=== PATIENT | male | born 1980 ===

== ENCOUNTER 2022-04-09 19:14 | Emergency (ER) | payer BC, SELFPAY ==
[2022-04-09 19:21] VITALS: BP 145/71; PULSE 65; RESP 18; TEMP 36.4; O2SAT 99; BMI 37.3
--- NOTE | 2022-04-09 19:38 | ED_ITS ---
HPI - General Adult General Chief complaint: Extremity Pain/Injury, Upper Stated complaint: Nerve Pain/Arm Time Seen by Provider: 04/09/22 19:38 History of Present Illness HPI narrative: This 41-year-old male was diagnosed with spinal stenosis in the cervical region about a month ago. He has neck pain radiating into his arms and comes in today stating that the pain is worsened. He is unable to sleep at night due to pain. He is taking tramadol, Tylenol, and Advil. He states that he was prescribed a steroid but discontinued it because it was causing upset stomach. He does not report any recent injury event or strenuous activity that triggered these symptoms. He has had an MRI recently to establish this diagnosis. Related Data Home Medications Medication Instructions Recorded Confirmed sertraline 50 mg tablet (Zoloft) 25 mg PO DAILY 04/09/22 04/09/22 Previous Rx's Medication Instructions Recorded gabapentin 100 mg capsule 100 mg PO TID #30 caps 04/09/22 Allergies Allergy/AdvReac Type Severity Reaction Status Date / Time No Known Drug Allergies Allergy Verified 04/09/22 19:24 Review of Systems Status of ROS: Reports: 10 or more systems reviewed and unremarkable except as noted in History and below Narrative: Constitutional: No fevers, no weight gain or loss. Eyes: No discharge. No vision changes. HENT: No congestion, no sore throat, no ear pain. Cardiovascular: No chest pain, no palpitations. Respiratory: No shortness of breath, no wheezes, no cough. Gastrointestinal: No abdominal pain, no vomiting, no diarrhea. Genitourinary: No dysuria, no hematuria. Musculoskeletal: Neck pain due to spinal stenosis. Skin: No rashes, no pruritis. Neurological: No dizziness, weakness, sensory change, speech change. Endo/Heme/Allergies: No bruising or bleeding. No polydipsia. Pysch: no suicidality, no anxiety, no insomnia. All other systems reviewed and are negative. Exam Narrative: Exam Narrative: Constitutional: Well-developed, well-nourished, no acute distress. HEENT: Normocephalic, atraumatic. Neck: Diffuse tenderness in the neck extending into the arms. There is no midline tenderness when palpating along the spine. Heart: Intact distal pulses. Lungs: No chest discomfort. No wheezes, rhonchi, or rales. Abdomen: Nontender. Back: Normal range of motion. Extremities: Normal range of motion. No injury. Skin: Intact. No rash. Warm. No erythema or pallor. Neurologic: No altered sensation. No weakness. Alert and oriented. Psychiatric: No suicidality. No anxiety or depression. No insomnia. Nursing notes and vitals signs are reviewed. Const: Vital Signs, click to edit/add: Vital Signs - 24 hr 04/09/22 19:21 Temperature 97.6 F Pulse Rate [Right Pulse Oximeter] 65 Respiratory Rate 18 Blood Pressure [Ri ght Upper Arm] 145/71 H Pulse Oximetry 99 Oxygen Delivery Me thod Room Air Course Vital Signs Vital signs: Initial Vital Signs Temperature 97.6 F 04/09/22 19:21 Temperature Source Temporal Artery Scan 04/09/22 19:21 Pulse Rate 65 04/09/22 19:21 Respiratory Rate 18 04/09/22 19:21 Blood Pressure 145/71 H 04/09/22 19:21 Blood Pressure Mean 95 04/09/22 19:21 Blood Pressure Position Sitting 04/09/22 19:21 Pulse Oximetry 99 04/09/22 19:21 Oxygen Delivery Method 04/09/22 19:21 Vital Signs Temperature 97.6 F 04/09/22 19:21 Pulse Rate 65 04/09/22 19:21 Respiratory Rate 18 04/09/22 19:21 Blood Pressure 145/71 H 04/09/22 19:21 Pulse Oximetry 99 04/09/22 19:21 Oxygen Delivery Method 04/09/22 19:21 Temperature 97.6 F 04/09/22 19:21 Pulse Rate 65 04/09/22 19:21 Respiratory Rate 18 04/09/22 19:21 Blood Pressure 145/71 H 04/09/22 19:21 Pulse Oximetry 99 04/09/22 19:21 Oxygen Delivery Method 04/09/22 19:21 Medical Decision Making MDM Narrative Medical decision making narrative: This patient comes in with cervical spinal stenosis and worsening pain related to this. He has had a recent workup and does have a follow-up appointment in 3 days. He will be starting physical therapy and perhaps will need surgery. He comes in because his pain is not controlled enough to be able to sleep at night. He did receive an intramuscular injection of morphine 10 mg. I did provide limited prescriptions for Toradol, [place], and a trial of gabapentin. He has a follow-up appointment in 3 days that these plans can be reviewed and continued according to his primary physician. Discharge Plan Discharge Clinical Impression: Spinal stenosis in cervical region Patient Disposition: Home, Self-Care Condition: Stable Instructions: Cervical Spinal Stenosis (ED) Additional Instructions: Take medication as prescribed. Follow up with MD as scheduled or return if worsening. Prescriptions: New gabapentin 100 mg capsule 100 mg PO TID Qty: 30 2RF No Action sertraline [Zoloft] 50 mg tablet 25 mg PO DAILY Stand Alone Forms: [employer] Info Instructions
[2022-04-09] MEDS: MORPHINE 10 MG/ML inj IM (19:46)
[2022-04-09 20:05] VITALS: PULSE 64; RESP 16; O2SAT 97
== END 2022-04-09 20:18 | disposition home or self-care (01) ==
LOC: ED 20:02
PROVIDERS: Emergency Provider Emergency Medicine Emergency Medical Services
DX: M48.02 Spinal stenosis, cervical region (principal)
CPT/HCPCS: 96372; 99283; 99284; J2270

== ENCOUNTER 2022-04-22 20:27 | Emergency (ER) | payer BC, SELFPAY ==
[2022-04-22 20:39] VITALS: BP 144/90; PULSE 75; RESP 18; TEMP 36.2; O2SAT 96
--- NOTE | 2022-04-26 10:05 | ED_ITS ---
HPI - Back Pain/Injury General Chief Complaint: Back Injury/Pain Stated Complaint: Nerve Pain In Back Time Seen by Provider: 04/22/22 20:50 History of Present Illness HPI Narrative: 41 year old man presenting with SO to the ER with c/o significant deep pain in neck radiating to left shoulder and left arm. known cervical spine stenosis; relatively recent diagnosis. seen in this ER about 2 weeks ago and received IM morphine. first steroid injection 4 days ago through [place] followed by PT. no fever, no swelling, no rash noted. has MD followup next week. is out of norco ([employer] review consistent) which helps some. weakness in left arm and hand. numbness in left arm. takes low-dose gabapentin as well. just can't get comfortable and needs to be able to sleep. Related Data Home Medications Medication Instructions Recorded Confirmed sertraline 50 mg tablet (Zoloft) 25 mg PO DAILY 04/09/22 04/09/22 Previous Rx's Medication Instructions Recorded gabapentin 100 mg capsule 100 mg PO TID #30 caps 04/09/22 gabapentin 300 mg capsule 300 mg PO TID #30 caps 04/22/22 Allergies Allergy/AdvReac Type Severity Reaction Status Date / Time No Known Drug Allergies Allergy Verified 04/09/22 19:24 Review of Systems Status of ROS: Reports: 6 or more systems reviewed and unremarkable except as noted in History and below [facility] Medical History Spinal stenosis in cervical region Surgical History (Updated 04/09/22 @ 20:02 by Mina Lawrence RN) No significant past surgical history Social History Smoking Status: Never smoker Second hand tobacco smoke exposure: No How often do you have a drink containing alcohol: never How often do you have six or more drinks on one occasion: Never AUDIT-C Alcohol total score: 0 Non-prescribed substance use: marijuana (any form) Exam Narrative: Exam Narrative: well built. clearly uncomfortable but not demonstrating greatly. cn 2-12 intact skin warm and dry. no rash. moving all extremities without difficulty and well perfused but neck rotation exacerbates pain. no midline neck tenderness. sore to palpation in left trap and surrounding musculature. subjective numbness in left arm. subtle weakness on recruiter coordinator in left vs right. lungs appear to be clear cv regular rate. Const: Documenting provider has reviewed patient's vital signs: yes Course Vital Signs Vital signs: Initial Vital Signs Temperature 97.1 F L 04/22/22 20:39 Temperature Source Temporal Artery Scan 04/22/22 20:39 Pulse Rate 75 04/22/22 20:39 Respiratory Rate 18 04/22/22 20:39 Blood Pressure 144/90 H 04/22/22 20:39 Blood Pressure Mean 108 04/22/22 20:39 Blood Pressure Position Semi-Fowlers 04/22/22 20:39 Pulse Oximetry 96 04/22/22 20:39 Oxygen Delivery Method 04/22/22 20:39 Vital Signs Temperature 97.1 F L 04/22/22 20:39 Pulse Rate 75 04/22/22 20:39 Respiratory Rate 18 04/22/22 20:39 Blood Pressure 144/90 H 04/22/22 20:39 Pulse Oximetry 96 04/22/22 20:39 Oxygen Delivery Method 04/22/22 20:39 Temperature 97.1 F L 04/22/22 20:39 Pulse Rate 75 04/22/22 20:39 Respiratory Rate 18 04/22/22 20:39 Blood Pressure 144/90 H 04/22/22 20:39 Pulse Oximetry 96 04/22/22 20:39 Oxygen Delivery Method 04/22/22 20:39 MDM - Back Pain/Injury MDM Narrative Medical decision making narrative: mri correlates with clinical picture percocet, hydroxyzine and zofran from [facility]. he would prefer to avoid prednisone to to hurting stomach prior. increase gabapentin Medical Records Attestation: I reviewed the patient's medical records. Discharge Plan Discharge Clinical Impression: Spinal stenosis in cervical region, Radiculitis Patient Disposition: Home w/ Parent or Adult Condition: Stable Additional Instructions: Stay hydrated. If taking opiates might want to add senna product daily and maybe MiraLax equivalent to keep stools moving. Please follow-up with primary care and other involved providers to keep this plan rolling along including how to manage pain. I think at a minimum you can increase your gabapentin to 300 mg 3 times a day. From [facility], can combine hydroxyzine with your opiates as can make them more effective. You might also take up to 500 mg of naproxen 2 times daily. This can be a substitute for ibuprofen. Prescriptions: New gabapentin 300 mg capsule 300 mg PO TID Qty: 30 0RF No Action sertraline [Zoloft] 50 mg tablet 25 mg PO DAILY gabapentin 100 mg capsule 100 mg PO TID Qty: 30 2RF Follow Up/Referrals: Dorinda Horner CNP [Primary Care Provider] - Stand Alone Forms: [employer] Info Instructions
== END 2022-04-22 21:25 | disposition home or self-care (01) ==
LOC: ED 21:18
PROVIDERS: Emergency Provider Family Medicine; PCP Family Medicine
DX: M48.02 Spinal stenosis, cervical region (principal); M54.12 Radiculopathy, cervical region
CPT/HCPCS: 99282; 99283

== ENCOUNTER 2022-05-02 17:00 | Outpatient (RCR) | payer BC, SELFPAY | END 2022-08-01 11:23 | disposition home or self-care (01) | PROVIDERS: PCP Family Medicine; Visit Provider Family Medicine | DX: M54.2 Cervicalgia (principal); Z51.89 Encounter for other specified aftercare | CPT/HCPCS: 97012; 97110; 97112; 97140; 97161 ==

== ENCOUNTER 2022-05-21 13:03 | Emergency (ER) | payer BC, SELFPAY ==
[2022-05-21 13:13] VITALS: BP 123/85; PULSE 71; RESP 18; TEMP 36.6; O2SAT 98; BMI 38.7
--- NOTE | 2022-05-21 13:36 | ED.GENADULT ---
HPI - General Adult General Chief complaint: Abdominal Pain Stated complaint: Pain Time Seen by Provider: 05/21/22 13:12 Source: patient and family Mode of arrival: ambulatory Limitations: no limitations History of Present Illness HPI narrative: 41-year-old male with a recent diagnosis of cervical spine stenosis presenting today with acute pain. Patient states that he has been treating his pain with Aleve and gabapentin, 900 mg p.o. t.i.d., however today his gave him a massage and he is not sure if that inflamed his pain but he he presents today with an acute exacerbation of left shoulder pain that radiates all the way to his fingertips. He denies any fevers or chills. The pain does make him feel nauseated but he has not vomited. No recent illness. His last prescription for oxycodone was on 04/22/2022 according to the [place] [facility], he last received IM morphine in the ER on 04/09/2022. He is status post 2 steroid injections in the area which have not helped. He states that he has to have a 3rd 1 and then they are going to discuss surgery. Related Data Home Medications Medication Instructions Recorded Confirmed sertraline 50 mg tablet (Zoloft) 25 mg PO DAILY 04/09/22 05/21/22 Previous Rx's Medication Instructions Recorded gabapentin 100 mg capsule 100 mg PO TID #30 caps 04/09/22 gabapentin 300 mg capsule 300 mg PO TID #30 caps 04/22/22 Allergies Allergy/AdvReac Type Severity Reaction Status Date / Time No Known Drug Allergies Allergy Verified 05/21/22 13:20 Review of Systems Status of ROS: Reports: 10 or more systems reviewed and unremarkable except as noted in History and below [facility] Medical History Spinal stenosis in cervical region Surgical History No significant past surgical history Social History Smoking Status: Never smoker Second hand tobacco smoke exposure: No How often do you have a drink containing alcohol: never How often do you have six or more drinks on one occasion: Never AUDIT-C Alcohol total score: 0 Non-prescribed substance use: marijuana (any form) Exam Narrative: Exam Narrative: Well-nourished well-developed patient, he is very tearful. Alert and oriented. Answers questions appropriately. Thoughts are goal oriented and rational. No tangential or magical thinking noted. Patient speaks in full sentences without needing to catch his breath. HEENT: Normocephalic atraumatic. Pupils are equally round reactive to light. Extraocular muscles are intact. Conjunctivae are moist without any icterus noted. Moist mucous membranes. Cardiovascular: Heart is regular rate and rhythm. Lungs: Clear to auscultation bilaterally. Neck is normal appearance. No vascular compromise noted of the left upper extremity. Const: Vital Signs, click to edit/add: Vital Signs - 24 hr 05/21/22 13:13 05/21/22 13:55 Temperature 97.9 F Pulse Rate [Right Pulse Oximeter] 71 63 Respiratory Rate 18 Blood Pressure [Ri ght Upper Arm] 123/85 Pulse Oximetry 98 97 Oxygen Delivery Me thod Room Air Room Air Course Course Hospital Course: Morphine 10 mg IM given in the ED today. Vital Signs Vital signs: Initial Vital Signs Temperature 97.9 F 05/21/22 13:13 Temperature Source Temporal Artery Scan 05/21/22 13:13 Pulse Rate 71 05/21/22 13:13 Respiratory Rate 18 05/21/22 13:13 Blood Pressure 123/85 05/21/22 13:13 Blood Pressure Mean 97 05/21/22 13:13 Blood Pressure Position Sitting 05/21/22 13:13 Pulse Oximetry 98 05/21/22 13:13 Oxygen Delivery Method 05/21/22 13:13 Vital Signs Temperature 97.9 F 05/21/22 13:13 Pulse Rate 71 05/21/22 13:13 Respiratory Rate 18 05/21/22 13:13 Blood Pressure 123/85 05/21/22 13:13 Pulse Oximetry 98 05/21/22 13:13 Oxygen Delivery Method 05/21/22 13:13 Temperature 97.9 F 05/21/22 13:13 Pulse Rate 63 05/21/22 13:55 Respiratory Rate 18 05/21/22 13:13 Blood Pressure 123/85 05/21/22 13:13 Pulse Oximetry 97 05/21/22 13:55 Oxygen Delivery Method 05/21/22 13:55 Medical Decision Making [facility] Narrative Medical decision making narrative: [age] year male with cervical spinal stenosis presenting with acute pain exacerbation. Treated with IM morphine. Will be sent home with [id number] tablets. He does have an appointment with primary care coming up this week. Medical Records Medical records reviewed: Yes I reviewed the patient's medical records Discharge Plan Discharge Clinical Impression: Cervical spinal stenosis, Acute pain Patient Disposition: Home, Self-Care Condition: Improved Additional Instructions: Follow-up with primary care this coming week. Prescriptions: No Action sertraline [Zoloft] 50 mg tablet 25 mg PO DAILY gabapentin 100 mg capsule 100 mg PO TID Qty: 30 2RF gabapentin 300 mg capsule 300 mg PO TID Qty: 30 0RF Follow Up/Referrals: Dorinda Horner, [employer]AR[employer] TRAINEE [Primary Care Provider] - Stand Alone Forms: [employer] Info Instructions
[2022-05-21] MEDS: MORPHINE 10 MG/ML inj IM (13:47)
[2022-05-21 13:55] VITALS: PULSE 63; O2SAT 97
== END 2022-05-21 14:06 | disposition home or self-care (01) ==
LOC: ED 13:54
PROVIDERS: Emergency Provider Family Medicine; PCP Family Medicine
DX: M48.02 Spinal stenosis, cervical region (principal)
CPT/HCPCS: 96372; 99283; 99284; J2270

== ENCOUNTER 2024-11-09 19:39 | Emergency (ER) | payer BC, SELFPAY ==
--- OUTSIDE RECORDS SUMMARY | 2024-11-09 19:42 | XMS_ITS | Clinical Summary ---
Author Organization [facility] Address [address] [place] [address] Care Team Providers Care Histologist Name Role Phone Chantal Gibbons P.A.-C. Primary Care Provider [phone] Source Comments Patient records contain information from all sites at [facility]. For routine questions regarding patient records, call [phone] during business hours, M-F 8:00 AM - 5:00 PM Central Time. Record requests for emergency care only can be directed to [phone] at any time.[facility] Allergies No known active allergies Medications gabapentin (NEURONTIN) 300 mg capsule TAKE 1 CAPSULE(300 MG) BY MOUTH THREE TIMES DAILY 270 capsule 3 4 Active Additional Information Patient taking differently:300 mg oral 3 times daily,As needed, Reported on 04/28/2024 omeprazole (PriLOSEC) [address] capsule Take 1 capsule (20 mg total) by mouth daily before morning meal. 90 capsule 3 4 Active semaglutide (Wegovy) 1 mg/0.5 mL pen injector injection Inject 1 mg under the skin every 7 (seven) days. 2 mL 11 4 04/28/20 25 Active sertraline (Zoloft) 100 mg tabletIndicatio ns:Depression Major One Episode Full Remission (HCC) Take 1 tablet (100 mg total) by mouth daily. 90 tablet 3 4 Active Active Problems Problem Noted Date Diagnosed Date Ruptured Cervical Disc 06/05/2022 Overview (06/05/2022): Added automatically from request for surgery [id number] Radiculopathy Cervical 06/02/2022 Depression Major One Episode Full Remission 02/03 Overview (04/28/2024): PHQ-9=4; MASON-7=4 Maintained on Zoloft 100 mg daily. Apnea Sleep Obstructive 03/02/2021 Overview (04/28/2024): Non compliant CPAP Symptoms improved with weight loss Body Mass Index 30.0 To 30.9 Adult 03/02/2021 Immunizations Immunization Administration Dates Next Due HepB Adult (HEPLISAV-B) 06/02/2024,04/28/2024 Influenza, Injectable, Mdck, Preservative Free, Quadrivalent 05/20/2024,06/04/2023,06/13/2022 SARS-COV-2 (COVID-19) - MODERNA(Discontinued) 11/25/2020,10/27/2020 SARS-COV-2 (COVID-19),NON-US,Unspecified(HISTORICAL) 05/20/2024,06/04/2023 Tdap 03/19/2023,08/08/2012 influenza vaccine quad (FLUZ ONE/FLUARIX) (6 months and older)(PF) 07/12/2020,11/20/2019 Family History Medical History Relation Name Comments Migraines Brother Diabetes mellitus type II Father Gavin Arzate Hyperlipidemia Father Gavin Arzate Hypertension Father Gavin Arzate Obesity Father Gavin Arzate Sleep apnea Father Gavin Arzate No Known Problems Maternal Grandmother Anxiety disorder Mother Ana Arzate Depression Mother Ana Arzate Skin cancer Mother Ana Marquisard Squamous cell Dementia Paternal Grandmother No Known Problems Sister 1 No Known Problems Sister 2 Relation Name Status Comments Brother Alive Father Gavin Arzate Alive Maternal Grandfather Maternal Grandmother Alive Mother Ana Arzate Alive Paternal Grandfather Paternal Grandmother Sister 1 Alive Sister 2 Alive Social History Tobacco Use Types Packs/Day Years Used Date Smoking Tobacco: Former Cigarettes 0 05/06/1999 - 04/05/2011 Smokeless Tobacco: Never Tobacco Cessation:Counseling Given: Not Answered Alcohol Use Standard Drinks/Week Comments Not Currently 0 (1 standard drink = 0.6 oz pur e alcohol) 1x monthly Humiliation, Afraid, Rape, and Kick questionnair e Answer Date Recorded Within the last year, have y ou been afraid of your partner or ex-partner? No 05/13/2022 Within the last year, have y ou been humiliated or emotionally abused in other ways by your partner or ex-partner? No Within the last year, have y ou been kicked, hit, slapped, or otherwise physically hurt by your partner or ex-partner? No 05/13/2022 Within the last year, have y ou been raped or forced to have any kind of sexual activity by your partner or ex-partner? No 05/13/2022 Social Connection and Isolat ion Panel [NHANES] Answer Date Recorded In a typical week, how many times do you talk on the phone with family, friends, or neighbors? Twice a week 05/13/2022 How often do you get togethe r with friends or relatives? Once a week 05/13/2022 How often do you attend chur ch or pentecostalism services? Never 05/13/2022 Do you belong to any clubs o r organizations such as taoist groups, unions, fraternal or athletic groups, or school groups? Yes 05/13/2022 How often do you attend meet ings of the clubs or organizations you belong to? More than 4 times per year 05/13/2022 Are you , , di vorced, , never , or living with a partner? Living with partner 05/13/2022 AUDIT-C Answer Date Recorded Q1: How often do you have a drink containing alc ohol? Monthly or less 05/13/2022 Average Number of Drinks Not on file 022 Frequency of Binge Drinking Not on file 05/04 Overall Financial Resource Strain (CARDIA) Answe r Date Recorded How hard is it for you to pa y for the very basics like food, housing, medical care, and heating? Not hard at all 06/26/2023 PHQ-2 Answer Date Recorded PHQ-2 Score 1 07/02/2024 [facility] - Occupational Stress Questionnaire Answer Date Recorded Do you feel stress - tense, restless, nervous, or anxious, or unable to sleep at night because your mind is troubled all the time - these days? Only a little 05/13/2022 Exercise Vital Sign Answer Date Recorde d On average, how many days pe r week do you engage in moderate to strenuous exercise (like a brisk walk)? 5 days 06/26/2023 On average, how many minutes do you engage in exercise at this level? 30 min 06/26/2023 Hunger Vital Sign Answer Date Recorded Within the past 12 months, y ou worried that your food would run out before you got the money to buy more. Never true 06/26/20 23 Within the past 12 months, t he food you bought just didn't last and you didn't have money to get more. Never true 06/26/2023 PRAPARE - Transportation Answer Date Re corded In the past 12 months, has l ack of transportation kept you from medical appointments or from getting medications? No 06/04 In the past 12 months, has l ack of transportation kept you from meetings, work, or from getting things needed for daily living? No 06/26/2023 Depression Answer Date Recor ded PHQ-9 Total Score (max 27) 4 07/02 Nutrition Answer Date Recorded On average, how many serving s of fruits and vegetables do you eat per day (serving size is equal to 1 cup or approximately the size of a tennis ball)? 3-5 06/26/2023 Dental Answer Date Recorded Dental: Regular Dentist No 10/25/19 21 Employment Answer Date Recorded Employment status Employed and actively working without restrictions 06/26/2023 Housing Stability Answer Date Recorded What is your living situation today? I have a [facility] place to live 06/26/2023 Education Answer Date Recorded What is the highest level of school you have completed or the highest degree you have received? 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 Last Filed Vital Signs Vital Sign Reading Time Taken Comments Blood Pressure 125/83 04/28/2024 3:36 PM CDT Pulse 80 04/28/2024 3:36 PM CDT Temperature 36 C (96.8 F) 04/28/2024 3:36 PM CDT Respiratory Rate 16 04/28/2024 3:36 PM CDT Oxygen Saturation 94% 06/28/2022 7:50 AM CDT Inhaled Oxygen Concentration - - Weight 109 kg (239 lb 12 oz) 04/28/2024 3:36 PM CDT Height 177.8 cm (5' 10) 04/28/2024 3:36 PM CDT Body Mass Index 34.4 04/28/2024 3:36 PM CDT Plan of Treatment Health Maintenance Due Date Last Done Comments HIV Screening 1980 Hepatitis C Screening 1980 COVID-19 Vaccine ( season) 2024 05/20/2024, 06/04/2023, 06/13/2022, Additional history exists Depression Monitoring (PHQ-9 for quality tracking) 09/03/2024 Depression Monitoring (PHQ-9) 10/31/2024 07/02/2024 Lipid (Cholesterol) Screening 06/02/2029 06/02/2024, 05/15/2022, 03/02/2021 DTaP,Tdap,and Td Vaccines (3 - Td or Tdap) 03/19/2033 03/19/2023, 08/08/2012 Influenza Vaccine Completed 05/20/2024, , 06/13/2022, Additional history exists Hepatitis B Vaccines Completed 06/02/2024, 04/28/20 24 HPV Vaccines Aged Out No longer eligi ble based on patient's age to complete this topic IPV Vaccines Aged Out No longer eligi ble based on patient's age to complete this topic Pneumococcal vaccine (0-49 years) Aged Out No longer eligible based on patient's age to complete this topic Medical Devices Implanted Type Area Imaging Administrator Device Identifier Shelf Expiration Date Model / Serial / Lot Hardware E.G. Pins/Screws/ Rods Hardware e.g. pins/screws/r ods Left: Ankle Prestige Cervical Disc System Implanted:Qt y: 1 on 06/27/2022 by Von Barr M.D. at [facility] Prosthesis Anterior: Spine Cervical Medtronic 08/13/2027 [id number] / / [id number] Procedures Procedure Name Priority Date/Time Associated Diagnosis Comments LIPID PANEL, S Routine 06/02/2024 3:36 PM CDT Encounter For Screening For Cardiovascular Disorders from Last 3 Months or Most Recently Relevant to Health Maintenance Results * (ABNORMAL) Lipid Panel (06/02/2024 3:36 PM CDT) Triglycerides 93 mg/dL 06/02/2024 6:08 PM CDT OWAT Comment: ----REFERENCE VALUE---- Normal: <150 mg/dL Borderline High: 150-199 mg/dL High: 200-499 mg/dL Very High: > or =500 mg/dL Cholesterol, Total 230(H) mg/dL 2023 6:08 PM CDT OWAT Comment: ----REFERENCE VALUE---- Desirable: < 200 mg/dL Borderline High: 200 - 239 mg/dL High: > or = 240 mg/dL Cholesterol, LDL, Calculated 159(H) mg/dL 06/02/2024 6:08 PM CDT OWAT Comment: ----REFERENCE VALUE---- Desirable: <100 mg/dL Above Desirable: 100-129 mg/dL Borderline High: 130-159 mg/dL High: 160-189 mg/dL Very High: >=190 mg/dL ----ADDITIONAL INFORMATION---- LDL cholesterol calculated using the Blake/NIH equation. Cholesterol, HDL 55 >=40 mg/dL 06/02/20 6:08 PM CDT OWAT Cholesterol, Non-HDL, Calculated 175(H) mg/dL 06/02/2024 6:08 PM CDT OWAT Comment: ----REFERENCE VALUE---- Desirable: <130 mg/dL Above Desirable: 130-159 mg/dL Borderline High: 160-189 mg/dL High: 190-219 mg/dL Very High: > or =220 mg/dL Fasting (8 HR or more) Yes 06/02/2024 3:36 PM CDT OWAT Blood (Blood, Venous) 06/02/2024 3:36 PM CDT 06/02/2024 5:47 PM CDT us Chantal Gibbons P.A.-C. LAB BLOOD ADD-ON Final Res ult [facility] [address] [place] [address], [place] OWAT [facility] [place] [address] [place] [address] from Last 3 Months or Most Recently Relevant to [place] [address] [facility] Advance Directives For more information, please contact: [phone] * Full Code (Latest Code Status on File) Date Activated Date Inactivated Comments 06/27/2022 8:48 PM 06/28/2022 2:16 PM Question Answer Comments Full Code: Not Discussed Due to: Patient not available * Full Code Date Activated Date Inactivated Comments 06/27/2022 2:10 PM 06/27/2022 8:48 PM Question Answer Comments Full Code: Not Discussed Due to: Patient not available Care Teams Histologist Relationship Specialty Start Date End Date Edwige, Chantal K, P.A.-C. [address] [place] [phone] PCP - General 11/18/20
[2024-11-09 19:45] VITALS: BP 132/78; PULSE 82; RESP 18; TEMP 36.8; O2SAT 99; BMI 35.2
--- NOTE | 2024-11-09 19:52 | ED.GENADULT ---
HPI - General Adult General Date Seen: 11/09/24 Chief complaint: Laceration/Wound Stated complaint: left thumb cut Time Seen by Provider: 11/09/24 19:49 History of Present Illness HPI narrative: 43-year-old generally healthy, gentleman who is generally healthy and up-to-date on tetanus presents to the ER today with a left thumb laceration. He cut his left thumb tip this evening at home when he was preparing dinner. He was using a sharp kitchen knife to cut up a pepper and accidentally cut his thumb while he was carving the and the pepper. Injury occurred shortly prior to arrival. He had fairly brisk, non possible tile dark red venous oozing from the thumb tip laceration any could not get it to stop at home. He did wash his thumb tip under water in the sink after the cut. He is not anticoagulated or coagulopathic. No history of diabetes or cancer or chemotherapy or immunosuppression. He is up-to-date on his tetanus. The he notes that the laceration create a flap of skin from his distal thumb tip. He is not sure if the skin was viable. 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 Related Data Home Medications ?Medication ?Instructions ?Recorded ?Confirmed sertraline 50 mg tablet (Zoloft) 25 mg PO DAILY 04/09/22 11/09/24 Allergies Allergy/AdvReac Type Severity Reaction Status Date / Time No Known Drug Allergies Allergy Verified 11/09/24 19:47 [facility] Medical History (Updated 11/09/24 @ 20:36 by Will Wills MD) Depression ?F32.A - Depression, unspecified (ICD-10) Spinal stenosis in cervical region ?M48.02 - Spinal stenosis, cervical region (ICD-10) Surgical History No significant past surgical history Social History Smoking Status: Never smoker Second hand tobacco smoke exposure: No How often do you have a drink containing alcohol: never How often do you have six or more drinks on one occasion: Never AUDIT-C Alcohol total score: 0 Non-prescribed substance use: marijuana (any form) Exam Narrative: Exam Narrative: Constitutional: Appears well-developed and well-nourished. Active. Non-toxic appearing. HENT: Head: Atraumatic. No signs of injury. Nose: No nasal discharge. Mouth/Throat: Mucous membranes are moist. Pharynx is normal. Tonsils symmetric. Uvula midline. Airway patent. Eyes: Conjunctivae normal and EOM are normal. Pupils are equal, round, and reactive to light. Right eye exhibits no discharge. Left eye exhibits no discharge. No icterus. Neck: Normal range of motion. Neck supple. No adenopathy. No stridor. Cardiovascular: Normal rate and regular rhythm. No active bleeding in his thumb tip. There is a flap of skin and the skin is dusky and pale. Pulmonary/Chest: Effort normal. No stridor. No respiratory distress. Musculoskeletal: Normal range of motion. No edema. Normal except for left thumb tip. Left thumb: Thenar eminence, MCP, proximal phalanges, IP joint, are all uninjured. Thumbnail is uninjured. There is a laceration affecting the skin of the distal thumb tip. There is exposed soft tissue under the dermis of the skin but no exposed bone of the distal phalanges. The laceration is approximately 2 cm in length but is C-shaped so creates a flap of skin that is approximately 1 cm in diameter. The flap is attached by a small neck on the radial border of the laceration. No associated foreign body. Neurological: Alert. Normal strength. No cranial nerve deficit or sensory deficit. Coordination normal. GCS eye subscore is 4. GCS verbal subscore is 5. GCS motor subscore is 6. Skin: Skin is warm. No rash noted. Const: Vital Signs, click to edit/add: Vital Signs - 24 hr 11/09/24 19:45 Temperature 98.2 F Pulse Rate [Right Pulse Oximeter] 82 Respiratory Rate 18 Blood Pressure [Ri ght Upper Arm] 132/78 Pulse Oximetry 99 Oxygen Delivery Me thod Room Air Course Vital Signs Vital signs: Initial Vital Signs Temperature 98.2 F 11/09/24 19:45 Temperature Source Temporal Artery Scan 11/09/24 19:45 Pulse Rate 82 11/09/24 19:45 Respiratory Rate 18 11/09/24 19:45 Blood Pressure 132/78 11/09/24 19:45 Blood Pressure Mean 96 11/09/24 19:45 Blood Pressure Position Sitting 11/09/24 19:45 Pulse Oximetry 99 11/09/24 19:45 Oxygen Delivery Method Room Air 11/09/24 19:45 Vital Signs Temperature 98.2 F 11/09/24 19:45 Pulse Rate 82 11/09/24 19:45 Respiratory Rate 18 11/09/24 19:45 Blood Pressure 132/78 11/09/24 19:45 Pulse Oximetry 99 11/09/24 19:45 Oxygen Delivery Method Room Air 11/09/24 19:45 Temperature 98.2 F 11/09/24 19:45 Pulse Rate 82 11/09/24 19:45 Respiratory Rate 18 11/09/24 19:45 Blood Pressure 132/78 11/09/24 19:45 Pulse Oximetry 99 11/09/24 19:45 Oxygen Delivery Method Room Air 11/09/24 19:45 Medications Administered Medications: Generic Name Dose Route Start Last Admin Trade Name Freq PRN Reason Stop Dose Admin Bupivacaine HCl 30 ml 11/09/24 20:00 11/09/24 20:04 Bupivacaine 0.25% 30 Ml INJECTION 11/09/24 20:01 30 ml ONCE ONE Administration Medical Decision Making [facility] Narrative Medical decision making narrative: Findings and exam are consistent with an left thumb tip laceration which creates a flap of skin from the distal thumb tip. Fortunately laceration does not create an open fracture and does not involve the fingernail plate or nail bed. Discussed options for repair including suturing the flap down, removing the flap entirely and allowing healing by secondary intention, or attempting to secure the flap with glue. Patient like to go ahead with sutures. There is no evidence at this time to suggest any associated fracture or foreign body. There is no evidence to suggest tendon or arterial injury and patient is neurologically in tact. Even after suturing, the skin of the flap does still appear dusky. Discussed with the patient that the skin may not be viable and may ultimately fall off, but potentially has a chance to revise lies. Also would create a good biologic dressing over the underlying wound. The patient is to follow up for suture removal as instructed in 7-8 days. Indications to seek urgent reevaluation and signs of infection (including but not limited to increasing pain, redness, swelling, fevers, and drainage) were reviewed. Tetanus is up-to-date. This is a clean and non-contaminated wound in which prophylactic antibiotics are not indicated. An understanding of the discharge instructions and need for follow up were verbally confirmed. Discharge Plan Discharge Clinical Impression: Laceration of thumb, left Patient Disposition: Home, Self-Care Condition: Stable Instructions: Finger Laceration (ED) Additional Instructions: As we discussed, the sutures will help hold the flap of skin down on your thumb tip. Right now the skin of the flap looks very white and dusky. The skin of the flap may not be viable and may ultimately dry up and fall off after we remove the sutures. However, we hope that the skin will revise lies and heal. Please monitor the wound carefully for signs of infection such as redness, swelling, or pus. If you have any concern for infection, or any other problems, please come back to the ER right away for recheck Please follow-up with your regular doctor for suture removal in 7-8 days. While the sutures are in place do not get your thumb tip wet or submerged under water. It is okay to remove the dressing and wash gently with a warm moist washcloth if needed, 1 time per day. After the wound is clean, reapply antibiotic ointment and a new dressing to protect the wound and the stitches. Prescriptions: No Action sertraline [Zoloft] 50 mg tablet 25 mg PO DAILY Follow Up/Referrals: Dorinda Horner, MOVIE WRITER [Primary Care Provider] - Stand Alone Forms: [facility] Info Instructions Procedures Laceration Left thumb tip laceration: Verification/time out: correct patient (Discussed options for wound management with the patient and he elected to go ahead with suturing the try to preserve the flap) and correct site Site: hand (Left thumb tip) Side (If applicable): left Size (cm): 2 Description: flap Depth: simple, single layer Local Anesthetic: bupivacaine 0.25% (4mL using digital block. Inadequate anesthesia achieved. Repeat digital block performed with 5 mL of 0.25% bupivacaine from a dorsal radial and ulnar approach.) Amount of anesthesia used (mL): 9 Skin layer closed with: nylon Size (cm): 5-0 Number of sutures: 5 Technique: simple, interrupted
[2024-11-09] MEDS: BUPIVACAINE 0.25% 30 ML INJECTION (20:04)
[2024-11-09 20:40] VITALS: BP 128/74; PULSE 85; RESP 18; TEMP 36.8; O2SAT 99
[2024-11-09 20:41] VITALS: BP 128/74; PULSE 85; RESP 18; TEMP 36.8
== END 2024-11-09 20:57 | disposition home or self-care (01) ==
PROVIDERS: Emergency Provider Emergency Medicine
DX: S61.012A Laceration without foreign body of left thumb without damage to nail, initial encounter (principal); W26.0XXA Contact with knife, initial encounter
CPT/HCPCS: 12001; 99282; 99283; J0665